=== PATIENT | male | born 1955 | race Caucasian/White ===

== ENCOUNTER 2017-04-17 17:06 | Observation (INO) | payer MEDICAID ==
[~2017-04-17] VITALS: Ht 165.1 cm; Wt 134.5 kg
--- NOTE | ~2017-04-17 | HP ---
Unit #: [id number] #: [id number] Patient: PREET POMPA [id number] [address] [address] [id number] MR#: [id number] NAME: PREET POMPA. ROOM: 39309 Age: 61 Sex: M Admission Date: 04/17/2017 : 1955 Attending Physician: Nathan Evans M.D. Primary Care Physician: Alma Leblanc M.D. HISTORY AND PHYSICAL REASON FOR ADMISSION Urinary retention, phimosis. HISTORY OF PRESENT ILLNESS The patient is a 61-year-old, morbidly obese, diabetic male who presented to the emergency room with a long history of difficulty urinating and being unable to retract his foreskin. He has now been unable to void for 24 hours. PAST MEDICAL HISTORY Diabetes, hypertension, hyperlipidemia, obstructive sleep apnea on CPAP, hypothyroidism, arthritis. PAST SURGICAL HISTORY Lap band. SOCIAL HISTORY Negative for tobacco. FAMILY HISTORY Diabetes and obesity. MEDICATIONS The patient does not know his home medications. REVIEW OF SYSTEMS Positive for weak urinary stream and inability to void. PHYSICAL EXAMINATION GENERAL APPEARANCE: A morbidly obese white male in no acute distress. VITAL SIGNS: Temperature 97.9. Blood pressure 157/81. Pulse 94. Respirations 14. Normocephalic, atraumatic. Extraocular movements are intact. NECK: Supple. No lymphadenopathy. The patient has symmetric chest rise. LUNGS: His respirations are unlabored. ABDOMEN: Soft, nontender, nondistended. GENITOURINARY: He has a completely buried penis and phimosis which I am unable to retract. I cannot place a Craven catheter. No clubbing, cyanosis or edema. ASSESSMENT AND PLAN Phimosis. We will plan a dorsal slit. The risks, benefits and alternatives including bleeding, infection, damage to adjacent structures, recurrent phimosis and all other risks were discussed with the patient. Unit #: [id number] #: [id number] Patient: PREET POMPA We will proceed under local anesthetic and he will be admitted for observation. Dictated by Nathan Evans M.D. CADEN/jesusita TD: 04/18/2017 07:00 JOB #: [id number] HISTORY AND PHYSICAL Page 1 of 1 X Nathan Evans MD HISTORY AND PHYSICAL
--- NOTE | ~2017-04-17 | BMI ---
[facility] Nutrition Therapy DATE: 04/18/17 Patient: PREET Burton ALETHA Physician: LUBA Address: [address] [place], [place] [address]AD[place] Room/Bed: [address] [place] [address], Zip: [place] [address] Admit Date: 04/17/17 Date of : [birth year] Height: 5 5 Weight: 295 133.8 HIGH BMI NOTE: DX: 61 Y.O. MALE ADMITTED FOR TROUBLE W/URINATION ANTHROPOMETRICS: 5'5", WT: 295# (134 KG), BMI: 49.1 DIET: CC+ 2000 KCAL DIET RESTRICTION RECOMMENDATIONS: 1. RECOMMEND TO ADD HEART HEALTHY TO CURRENT DIET ORDER ABOVE TO PROMOTE GRADUAL WEIGHT LOSS TOWARDS HEALTHY BMI (19.0-25.0) OR +/-10%IBW RD WILL F/U PER PROTOCOL Respectfully, TEMO LINN MS, RD, LD [facility] cc: client file
--- NOTE | ~2017-04-17 | OR ---
Unit #: [id number] #: [id number] Patient: PREET POMPA [id number] [address] [place], [place] [address] [id number] I MR#: [id number] NAME: PREET POMPA. ROOM: 57029 Date of Procedure: 04/17/2017 Admission Date: 04/17/2017 Surgeon: Nathan Evans M.D. : 1955 Attending Physician: Nathan Evans M.D. Primary Care Physician: Alma Leblanc M.D. PROCEDURE OPERATIVE NOTE PREOPERATIVE DIAGNOSIS Phimosis and urinary retention. POSTOPERATIVE DIAGNOSIS Phimosis and urinary retention. PROCEDURE PERFORMED 1. Dorsal slit. 2. Complex catheter placement. SURGEON Nathan Evans M.D. ANESTHESIA Local. INDICATIONS FOR PROCEDURE The patient is a 61-year-old, morbidly obese male, with phimosis. We are unable to retract his foreskin. We cannot place a Craven catheter. He is unable to void. The risks, benefits and alternatives including bleeding, infection, damage to adjacent structures, recurrent phimosis and all the risks were discussed with the patient. Informed consent was obtained, he wished to proceed. DESCRIPTION OF PROCEDURE The patient was placed in supine position. His genitalia were prepped and draped in the usual sterile fashion. Penile block was performed using 1% lidocaine without epinephrine. He has had severely buried penis and severe phimosis. I was able, with some difficulty, to ascertain an opening in the phimotic band to perform a dorsal slit to below the level of the phimotic band to where we could reduce the foreskin. He had severe induration and again, due to his severe obesity and severely buried penis, it was extremely difficult. I oversewed the incision with a 3-0 chromic x2. Hemostasis was excellent. Bacitracin and sterile dressing were placed. The patient tolerated the procedure well without complications. Dictated by... Nathan Evans M.D. Unit #: [id number] #: [id number] Patient: PREET POMPA CADEN/df TD: 04/18/2017 07:03 JOB #: [id number] PROCEDURE OPERATIVE NOTE Page 1 of 1 X Nathan Evans MD PROCEDURE OPERATIVE NOTE
[~2017-04-17 17:06] MED LIST: ALLOPURINOL300 MG PO; ANDROGEL2.5 GM TOP; AVANDARYL 4 MG-1 TA1 PO; AVODART0.5 MG PO; BAYER ASPIRIN325 M1 PO; BENICAR HCT 40-1 TA1 PO; CELEBREX PO; CENTRUM SILVER PO; FORTAMET1000 MG/B1 PO; JANUVIA PO; LANTUS100 U/ML SUBQ; LEVOXYL100 MCG PO; LIPITOR80 MG PO; LOVAZA1 G PO; NIASPAN1000 MG PO; PHENERGAN25 MG PO; RAMIPRIL10 MG PO; TRICOR145 MG PO; VITAMIN D50000 UNIT PO
[2017-04-17 23:19] LABS: URINE SOURCE CLEAN CATCH
[2017-04-17 23:34] LABS: URINE APPEARANCE CLOUDY; URINE COLOR YELLOW; URINE GLUCOSE 50 MG/DL (NEG); URINE KETONE NEG (NEG); URINE LEUKOCYTE ESTERASE 2+ (NEG); URINE NITRATE NEG (NEG); URINE PROTEIN NEG (NEG)
[2017-04-17 23:35] LABS: URBCS1 AUWI 25-50 /[HPF] (0-2); URINE BILIRUBIN NEG (NEG); URINE BLOOD 4+ (NEG); URINE UROBILINOGEN NORM (NEG)
[2017-04-17 23:36] LABS: CULTURE INDICATED? YES; URINE BACTERIA AUWI 2+ (NEGATIVE)
[2017-04-17] MEDS ORDERED: ALTACE10 M2 PO (23:49)
[2017-04-17] MEDS ORDERED: ALLOPURINOL300 MG PO (23:50)
[2017-04-17] MEDS ORDERED: LEVOTHYROXINE100 MCG PO (23:50)
[2017-04-17] MEDS ORDERED: VALSARTAN-HCTZ1 EAC3 PO (23:51)
[2017-04-17] MEDS ORDERED: LIPITOR80 MG PO (23:51)
[2017-04-17] MEDS ORDERED: FENOFIBRATE145 M1 PO (23:52)
[2017-04-17] MEDS ORDERED: ASPIRIN81 M2 PO (23:53)
[2017-04-17] MEDS ORDERED: ACTOS30 MG PO (23:53)
[2017-04-17] MEDS ORDERED: TOUJEO SOL300 UNIT/1 SUBQ (23:56)
[2017-04-18 07:11] LABS: BASOPHIL% 0.4 % (0-2.5); EOSINOPHIL# 0.2 X10e3 (0-0.7); EOSINOPHIL% 2.2 % (0.0-7.0); HEMATOCRIT 40.1 % (38.0-50.0); LYMPHOCYTE# 1.2 X10e3 (1.0-3.5); LYMPHOCYTE% 13.1 % (17.0-45.0); MEAN CELL VOLUME 95.1 FL (83-96); MEAN CORPUSCULAR HEMOGLOBIN 30.7 PG (28-34); MEAN CORPUSCULAR HGB CONC 32.3 g/dL (30-36); MEAN PLATELET VOLUME 7.9 FL (6.5-11.5); MONOCYTE% 10.3 % (3.0-12.0); NEUTROPHIL# 6.8 X10e3 (1.5-7.1); PLATELET COUNT 257 X10e3 (140-420); RED BLOOD COUNT 4.22 X10e (3.90-5.60); WHITE BLOOD COUNT 9.2 X10e3 (4.0-10.5)
[2017-04-18 07:19] LABS: DIFF IND NO
[2017-04-18 07:32] LABS: BUN/CREATININE RATIO 19.28; CALCIUM SERUM 9.4 mg/dL (8.4-10.2); CREATININE SERUM 1.4 mg/dL (0.6-1.4); GLOM FILT RATE Estimated 54.6 mL/min (>60); POTASSIUM 3.4 mmol/L (3.5-5.1)
[2017-04-19] MEDS ORDERED: HYDROCODON-ACE1 EAC9 PO (10:06)
[2017-04-19] MEDS ORDERED: KEFLEX500 M1 PO (10:07)
== END 2017-04-19 10:51 | disposition home or self-care (01) ==
LOC: CED 17:06 → CEDOF 22:10 → C2A 22:10 → CEDOF 23:04 → CED 23:04 → CEDOF 23:04 → C2A 04-18 07:48
PROVIDERS: Emergency Medicine
DX: N47.1 Phimosis (principal); R33.8 Other retention of urine; E66.01 Morbid (severe) obesity due to excess calories; E11.9 Type 2 diabetes mellitus without complications; Z79.4 Long term (current) use of insulin; I10 Essential (primary) hypertension; G47.33 Obstructive sleep apnea (adult) (pediatric); E78.5 Hyperlipidemia, unspecified; Z98.84 Bariatric surgery status
CPT/HCPCS: 51702; 80048; 81003; 82947; 85025; 87086; 94760; 96374; 96376; 99284; G0378; J0690; J1815; J2270